=== PATIENT | female | born 1975 | race African-American/Black ===

== ENCOUNTER 2019-02-19 09:08 | Emergency (ER) | payer MEDICAID, OTHER ==
[~2019-02-19] VITALS: Ht 165.1 cm; Wt 156.0 kg
[2019-02-19] MEDS: KETOROLAC 30MG/ML VIAL IV STA (09:43)
[2019-02-19 10:17] LABS: BASOPHILS % 0.9 % (0.0-2.0); EOSINOPHILS % 0.5 % (0.0-5.0); HEMATOCRIT. 38.2 % (36.0-48.0); HEMOGLOBIN. 12.6 g/dL (12.0-16.0); LYMPHOCYTES % 18.4 % (20.0-50.0); MEAN CORPUSCULAR HEMOGLOBIN 32.1 pg (28.0-32.0); MEAN CORPUSCULAR VOLUME 96.9 fL (81.0-99.0); MEAN PLATELET VOLUME 10.6 fl (7.4-10.4); MONOCYTES % 7.2 % (2.0-8.0); PLATELET 200 x1000/uL (130-400); RED BLOOD CELL COUNT 3.94 mill/uL (4.2-5.4); RED CELL DISTRIBUTION WIDTH 13.7 % (11.6-14.6)
[2019-02-19 10:18] LABS: HCG SCREEN NEGATIVE
[2019-02-19 10:19] LABS: PROTHROMBIN TIME 10.7 sec (9.6-11.0)
[2019-02-19 10:20] LABS: CHLORIDE 107 mEq/L (98-107)
[2019-02-19] MEDS: SODIUM CHLORIDE 0.9% 1,000 ML IV ONE (10:41)
[2019-02-19] MEDS: ONDANSETRON HCL 4MG/2ML INJ IV STA (10:52)
[2019-02-19 11:43] LABS: CLARITY URINE CLEAR (CLEAR); COLOR URINE YELLOW (YELLOW); KETONES URINE NEGATIVE (NEGATIVE); LEUKOCYTE ESTERASE URINE NEGATIVE (NEGATIVE); NITRITE URINE NEGATIVE (NEGATIVE); OCCULT BLOOD URINE TRACE (NEGATIVE); PH URINE >=9.0 (4.5-8.0); PROTEIN URINE NEGATIVE (NEGATIVE); SPECIFIC GRAVITY URINE 1.005 (1.005-1.030); UROBILINOGEN URINE 0.2 E.U./dL (0.2-1.0)
[2019-02-19 14:00] VITALS: BP 162/100
== END 2019-02-19 14:49 | disposition home or self-care (01) ==
LOC: ER 09:46 → CANBEDREQ 15:05
DX: K80.50 Calculus of bile duct without cholangitis or cholecystitis without obstruction (principal); R50.9 Fever, unspecified; Z87.19 Personal history of other diseases of the digestive system; Z98.890 Other specified postprocedural states
CPT/HCPCS: 36415; 71045; 76705; 80053; 81003; 81025; 83605; 83690; 83880; 84145; 84484; 84703; 85025; 85610; 87040; 87086; 93005; 96361; 96374; 99284; J2405; J7030; J1885

== ENCOUNTER 2022-03-07 12:29 | Emergency (ER) | payer MEDICAID ==
[~2022-03-07] VITALS: Ht 165.1 cm; Wt 105.0 kg
[2022-03-07] MEDS ORDERED: ACETAMINOPHEN 500MG TABLET PO ONE (13:45)
[2022-03-07 14:21] LABS: BASOPHILS % 0.6 % (0.0-2.0); EOSINOPHILS % 1.9 % (0.0-5.0); HEMATOCRIT. 37.2 % (36.0-48.0); HEMOGLOBIN. 12.3 g/dL (12.0-16.0); MEAN CORPUSCULAR HEMOGLOBIN 32.2 pg (28.0-32.0); MEAN CORPUSCULAR VOLUME 97.3 fL (81.0-99.0); MEAN PLATELET VOLUME 10.4 fl (7.4-10.4); MONOCYTES % 9.5 % (2.0-8.0); PLATELET 222 x1000/uL (130-400); RED BLOOD CELL COUNT 3.82 mill/uL (4.2-5.4); RED CELL DISTRIBUTION WIDTH 14.1 % (11.6-14.6)
[2022-03-07 14:28] LABS: UCG SCREEN NEGATIVE
[2022-03-07 14:29] LABS: CHLORIDE 103 mEq/L (98-107)
[2022-03-07 15:18] VITALS: BP 137/85
== END 2022-03-07 15:19 | disposition home or self-care (01) ==
LOC: ER 12:29
DX: R60.0 Localized edema (principal); R25.2 Cramp and spasm; R03.0 Elevated blood-pressure reading, without diagnosis of hypertension
CPT/HCPCS: 36415; 71045; 80053; 81025; 83880; 85025; 93970; 99285